=== PATIENT | female | born 1960 | race Caucasian/White ===

== ENCOUNTER → 2023-03-23 14:22 | Outpatient (REF) | payer BC, SELFPAY | LOC: HWWDC 14:22 | PROVIDERS: ATTENDING PHYSICIAN Obstetrics & Gynecology Gynecology; FAMILY PHYSICIAN Family Medicine | DX: Z12.31 Encounter for screening mammogram for malignant neoplasm of breast (principal) | CPT/HCPCS: 77063; 77067 ==

== ENCOUNTER 2023-10-04 15:21 | Emergency (ER) | payer BC, SELFPAY ==
[2023-10-04 15:23] VITALS: BP 187/100
--- NOTE | 2023-10-04 15:27 | ED.PDOC.TRB ---
ED Provider Triage
-
Patient seen by provider in Triage?: Seen in Triage
63-year-old female tripped over uneven sidewalk landed forward. Landed on both hands hit her nose. Complains of nasal pain swelling and bleeding as well as bilateral wrist pain left elbow pain left hip and left knee pain. No anticoagulants no
neck pain. Cervical spine nontender in triage. X-rays ordered
--- NOTE | 2023-10-04 16:47 | ED.GENMED ---
History of Present Illness
General
Chief Complaint: Fall
Time Seen by Provider: 10/04/23 16:00
History of Present Illness
History of Present Illness:
63-year-old female presents to the emergency department for evaluation of multiple injuries after a mechanical fall when she tripped on a curb. She is complaining of nasal pain and swelling, left elbow and wrist pain, right wrist pain, left hip
pain, and left second toe pain.Denies loss of consciousness. She is not on blood thinners
Review of Systems
Review of Systems
Allergies reviewed?: Yes
All Other Systems: ROS reviewed and negative except as documented in HPI and ROS
Phy Exam
Physical Exam
Physical Exam:
GEN: Well appearing, NAD, WDWN
HEENT: Oral mucosa moist, no scleral icterus. Moderate nasal swelling/ecchymosis over the nasal bridge, No malalignment, no crepitus, superficial abrasion to the nasal bridge, no other signs of cranial trauma.
Cardiac: Regular rate
Lung: No respiratory distress, no tachypnea
MSK: No gross deformity or injuries. Bilateral wrist range of motion is normal with no obvious deformities. Left elbow tenderness elicited along the radial head/antecubital fossa, range of motion limited by pain, no obvious effusion
Skin: Good color, no pallor or jaundice, no rashes, Minor abrasion to the left second toe nail
Neuro: AO x3, moves all extremities freely
Psych: Calm, cooperative
Course
Orders/Labs/Results
Orders:
Orders
10/04/23 15:23
CR Elbow - Left Min 3 Views Urgent
Comment:
Reason For Exam: fall
CR Hip - LT w/wo Pel 2-3 Vw* Urgent
Comment:
Reason For Exam: fall
Include a pelvis x-ray?: Yes
CR Knee - Left 4 Or More View* Urgent
Comment:
Reason For Exam: fall
CR Wrist - Left Min 3 Views Urgent
Comment:
Reason For Exam: fall
CR Wrist - Right Min 3 Views Urgent
Comment:
Reason For Exam: fall
10/04/23 16:31
CR Toe(s) Min 2 Vw Left Urgent
Comment:
Reason For Exam: fall
Indicate Which Toe:: Second
10/04/23 16:47
CT Facial Bones W/o Iv Contras Urgent
Comment:
Reason For Exam: facial trauma
Vital Signs
Initial and Last Documented VS:
Initial Vital Signs
Temp Pulse Resp BP Pulse Ox
98.6 F 91 20 187/100 100
10/04/23 15:23 10/04/23 15:23 10/04/23 15:23 10/04/23 15:23 10/04/23 15:23
Last Documented Vital Signs
Temp Pulse Resp BP Pulse Ox
98.6 F 85 20 182/102 99
10/04/23 15:23 10/04/23 18:07 10/04/23 18:07 10/04/23 18:07 10/04/23 18:07
MDM/Problems Addressed
MDM/Problems Addressed:
63-year female presents after a fall. She is identified to have a nondisplaced left radial head fracture, placed her in a sling and advised close orthopedic follow-up. I discussed supportive care for other injuries of which none were identified to
have osseous abnormalities.
*Critical Care Note
Total Time (30-74mins, 75-104mins- exclusive of procedures): Not Applicable
ED Attending Note
-
Portions of this chart may have been created with voice recognition software.� Occasional wrong word or��sound alike� substitutions may have occurred due to the inherent limitations of voice recognition software.
Discharge Plan
Departure
Patient Disposition: Home (Routine Discharge)
Date of Disposition: 10/04/23
Time of Disposition: 17:46
Patient with high blood pressure during this ER visit?: No
Discharge Problem:
Closed fracture of head of left radius, Contusion of hip, left, Strain of wrist, bilateral, Contusion of toe of left foot, Contusion of nose
Instructions: Elbow Fracture, Adult ED
Referrals:
Lorenzo Moore MD [Active] -
Jim Person MD [Family Provider] -
Activity Restrictions/Additional Instructions:
Wear the sling until orthopedics follow up
Remove the sling for at least 1 hour per day to allow the elbow to extend and stretch
ice often to reduce pain and swelling
Interventions
Interventions:
*Risk Screen - Suicide Last Done: 10/04/23 18:09
*General Assessment Last Done: 10/04/23 18:09
*Neglect/Abuse Screening Last Done: 10/04/23 18:09
ED- Fall Risk Assessment Last Done: 10/04/23 18:09
*ED COVID-19 Vaccine History Last Done: 10/04/23 18:09
*Nursing Disposition Last Done: 10/04/23 18:09
ED-Musculoskeletal Assessment Last Done: 10/04/23 16:07
ED- Neurological Assessment Last Done: 10/04/23 16:07
ED-Skin Assessment Last Done: 10/04/23 16:07
Discharge Date and Time
Discharge Date/Time: 10/04/23 18:09
Print Language: HEBREW
[2023-10-04 18:07] VITALS: BP 182/102
== END 2023-10-04 18:09 | disposition home or self-care (01) ==
LOC: EMR 15:21
PROVIDERS: EMERGENCY PHYSICIAN Emergency Medicine; FAMILY PHYSICIAN Family Medicine
DX: S52.122A Displaced fracture of head of left radius, initial encounter for closed fracture (principal); S70.02XA Contusion of left hip, initial encounter; S90.122A Contusion of left lesser toe(s) without damage to nail, initial encounter; S00.33XA Contusion of nose, initial encounter; S00.31XA Abrasion of nose, initial encounter; S90.415A Abrasion, left lesser toe(s), initial encounter; S66.912A Strain of unspecified muscle, fascia and tendon at wrist and hand level, left hand, initial encounter; S66.911A Strain of unspecified muscle, fascia and tendon at wrist and hand level, right hand, initial encounter; W10.1XXA Fall (on)(from) sidewalk curb, initial encounter
CPT/HCPCS: 99284; 70486; 73080; 73110; 73502; 73564; 73660

== ENCOUNTER → 2023-10-12 12:58 | Outpatient (REF) | payer BC, SELFPAY | LOC: HWRAD 12:58 | PROVIDERS: ATTENDING PHYSICIAN Family Medicine | DX: M89.8X1 Other specified disorders of bone, shoulder (principal) | CPT/HCPCS: 73000 ==

== ENCOUNTER → 2024-06-09 14:36 | Outpatient (REF) | payer BC, SELFPAY | LOC: HWWDC 14:36 | PROVIDERS: ATTENDING PHYSICIAN Obstetrics & Gynecology Gynecology; FAMILY PHYSICIAN Family Medicine | DX: Z12.31 Encounter for screening mammogram for malignant neoplasm of breast (principal) | CPT/HCPCS: 77063; 77067 ==